=== PATIENT | female | born 1955 | race Two or more races ===

== ENCOUNTER 2020-01-30 15:47 | Emergency (ER) | payer OTHER ==
[~2020-01-30] VITALS: Ht 154.9 cm; Wt 60.8 kg
== END 2020-01-30 17:19 | disposition home or self-care (01) ==
LOC: ER 15:47
DX: H10.11 Acute atopic conjunctivitis, right eye (principal)

== ENCOUNTER 2022-10-13 14:05 | Emergency (ER) | payer OTHER ==
[~2022-10-13] VITALS: Ht 152.4 cm; Wt 54.4 kg
== END 2022-10-13 17:50 | disposition home or self-care (01) ==
LOC: ER 14:05
DX: M62.838 Other muscle spasm (principal); I10 Essential (primary) hypertension

== ENCOUNTER 2022-12-01 07:43 | Outpatient (CLI) | payer OTHER | END 2022-12-01 07:44 | disposition home or self-care (01) | LOC: NUCLEAR 07:43 | PROVIDERS: ATTEND Specialist | DX: E21.0 Primary hyperparathyroidism (principal) | CPT/HCPCS: 78072; A9500 ==